=== PATIENT | male | born 1935 | race Caucasian/White ===

== ENCOUNTER 2017-08-13 11:31 | Emergency (ER) | payer MEDICARE, OTHER ==
[~2017-08-13] VITALS: Ht 152.4 cm; Wt 82.0 kg
[2017-08-13 11:34] VITALS: Ht 152.4 cm; Wt 82.0 kg
[2017-08-13] MEDS ORDERED: ACETAMINOPHEN 500 MG TAB PO STA (12:06)
--- NOTE | 2017-08-13 12:42 | RADRPT ---
PROCEDURE: XR Left Ankle CLINICAL INDICATION: Trauma, pain TECHNIQUE: Standard 3 view radiographs were submitted. COMPARISON: None FINDINGS: Osseous structures: There is a subtle nondisplaced fracture at the site of the fused epiphyseal plat e with a slight cortical step-off but without significant displacement. On the AP view there appears to be slight cortical buckling at the lateral base of the medial malleolus. There is a nondisplaced posterior malleolar fracture is seen on the lateral projection. There is minimal calcaneal spurring at the insertion of the plantar aponeurosis. Joint spaces: Well maintained with no significant erosions or spurring evident. Soft tissues: There is vascular calcification. There is lateral soft tissue swelling along with a 1. 6 cm in diameter old void soft tissue nodule projecting lateral and ventral to the distal fibular di aphysis. IMPRESSION: 1. Nondisplaced posterior malleolar fracture. 2. Small cortical step off at the lateral fused epiphyses old white at the distal fibula suspicious for a nondisplaced fracture. 3. Slight cortical buckling seen medial to the base of the medial malleolus. 4. Lateral soft tissue swelling with a 1.6 cm soft tissue nodule located ventral and lateral to the distal fibular diaphysis. 5. Vascular calcification. Physician Tabitha Date Time Electronically viewed and signed by Physician Tabitha on 08/13/2017 12:42 /
--- NOTE | 2017-08-13 12:44 | RADRPT ---
PROCEDURE: XR Left Foot CLINICAL INDICATION: Pain TECHNIQUE: AP, oblique, and lateral radiographs were submitted. COMPARISON: None FINDINGS: Osseous structures: A nondisplaced posterior malleolar fracture is evident. The remaining visualized osseous elements appear intact. There is minimal calcaneal spurring at the insertion of the plantar aponeurosis. Joint spaces: are well maintained, with no significant spurring, erosion or joint effusion evident. Soft tissues: Vascular calcification is evident and there is a 1.6 cm soft tissue nodule projecting ventral to the distal fibula and tibia. IMPRESSION: 1. Nondisplaced posterior malleolar fracture. 2. Mild calcaneal spurring 3. Vascular calcification 4. 1.6 cm soft tissue nodule projects ventral to the distal tibia and fibula. Physician Tabitha Date Time Electronically viewed and signed by Physician Tabitha on 08/13/2017 12:44 /
[2017-08-13] MEDS ORDERED: ACET500C5 PO (12:51)
[2017-08-13] MEDS ORDERED: CEPH-443 PO (12:51)
--- NOTE | 2017-08-13 12:56 | ERD ---
ER Documentation Chief Complaint Date/Time DATE: 08/13/17 TIME: 12:54 Chief Complaint left ankle/foot pain after a mech fall yesterday HPI This 82-year-old male complains of left ankle pain after slipping backwards yesterday while walking. He has bruising and swelling on the left ankle with some blisters. Denies restricted range of motion weakness or head injury or neck pain or additional symptoms. ROS All systems reviewed and are negative except as per history of present illness. Medications Home Meds Active Scripts Acetaminophen* (Tylophen*) 500 Mg Capsule, 1 CAP PO Q6H Y for PAIN AND OR ELEVATED TEMP, #20 CAP Prov:CHRISTINE GARLAND MD 08/13/17 Cephalexin* (Keflex*) 500 Mg Capsule, 500 MG PO QID for 7 Days, CAP Prov:CHRISTINE GARLAND MD 08/13/17 Allergies Allergies: Coded Allergies: No Known Allergy (Unverified , 08/13/17) PMhx/Soc Medical and Surgical Hx: pt denies Surgical Hx History of Surgery: No Anesthesia Reaction: No Hx Neurological Disorder: No Hx Respiratory Disorders: No Hx Cardiac Disorders: Yes (hypertension) Hx Psychiatric Problems: No Hx Miscellaneous Medical Probl: No Hx Alcohol Use: No Hx Substance Use: No Hx Tobacco Use: No Smoking Status: Never smoker Physical Exam Vitals Vital Signs Date Time Temp Pulse Resp B/P Pulse Ox O2 Delivery O2 Flow Rate FiO2 08/13/17 11:34 100.0 89 18 164/74 99 Physical Exam Const: [] Alert, [id number]. Head: Atraumatic Eyes: Normal Conjunctiva ENT: Normal External Ears, Nose and Mouth. Neck: Full range of motion..~ No meningismus. Resp: Clear to auscultation bilaterally Cardio: Regular rate and rhythm, no murmurs Abd: Soft, non tender, non distended. Normal bowel sounds Skin: No petechiae or rashes Back: No midline or flank tenderness Ext: No cyanosis, or edema there is some bruising and swelling and ecchymosis around the left ankle joint. Patient has full range of motion to plantarflexion and dorsiflexion. There is some scattered fracture blisters without erythema or warmth. Neur: Awake and alert Psych: Normal Mood and Affect Results 24 hrs Current Medications Medications (Trade) Dose Ordered Sig/Lance Route PRN Reason Start Time Stop Time Status Last Admin Dose Admin Acetaminophen (Tylenol Tab) 500 mg ONCE STAT PO 08/13/17 12:06 08/13/17 12:07 DC 08/13/17 12:12 Procedures/MDM X-ray left ankle 3V Interpreted by me: Bones: Posterior tibial fracture at the joint line. There is possibly some cortical abnormalities of the distal fibula medial tibia as well. Joints: No dislocation impression-posterior malleolar fracture possible cortical abnormalities of the distal fibula. Present with left ankle fracture without current evidence of infection, no evidence of deficits or ischemia. Patient is placed in a left lower extremity walker boot administered crutches with crutch training. Patient is neurovascular intact after the boot. Fracture blisters were dressed with Neosporin Xeroform. Patient will be treated with Keflex given the fracture blisters to prevent an infection, instructions for wound care, Tylenol and orthopedic follow-up this week. Return sooner for fevers, redness, new worsening symptoms. Departure Diagnosis: Primary Impression: Ankle fracture, left Encounter type: initial encounter Fracture type: closed Qualified Code: S82.892A - Closed fracture of left ankle, initial encounter Condition: Stable Patient Instructions: Treating Ankle Fractures, Fracture, Ankle (General) Referrals: YOSHI DEGROOT MD,IN [facility] HESS Additional Instructions: Pedis within the next week for further evaluation and treatment. Recheck sooner for redness, fevers, new symptoms. CHRISTINE GARLAND MD Aug 13, 2017 12:56
[2017-08-13 14:52] VITALS: BP 154/72; PULSE 77; RESP 18; TEMP 99.8
== END 2017-08-13 14:50 | disposition home or self-care (01) ==
LOC: FTE 11:31
DX: S82.55XA Nondisplaced fracture of medial malleolus of left tibia, initial encounter for closed fracture (principal); I10 Essential (primary) hypertension; W18.39XA Other fall on same level, initial encounter; Y92.9 Unspecified place or not applicable
CPT/HCPCS: 73610